=== PATIENT | male | born 2000 | race Hispanic/Latino ===

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

== ENCOUNTER → 2023-03-23 | Emergency (ER) | payer SELFPAY ==
[~2023-03-23] MED LIST: NA CHLORIDE 0.9% 1,000 ML ONE
--- OUTSIDE RECORDS SUMMARY | 2023-03-23 15:56 | XMS REPORT | Continuity of Care Document ---
Author Name Unknown Address [address] [facility] [address] [place] [id number] [facility] thconnect Address [address] [facility] [address] [place] [address] Care Team Providers Care Bridge Maintainer Name Role Phone Reese Oseguera MD Attending Clinician [phone] REESE OSEGUERA Attending Clinician Unavailable Problems Condition Name Condition Details Condition Category Status Onset Date Resolution Date Last Treatment Date Treating Clinician Comments Source No known active problems No known active problems Disease [facility] Allergies, Adverse Reactions, Alerts Allergy Name Allergy Type Status Severity Reaction(s) Onset Date Inactive Date Treating Clinician Comments Source Amoxicil loulou Propensi ty to adverse reaction s Active Nausea and/or Vomiting 07-02 00:00: 00 [facility] Penicill ins Propensi ty to adverse reaction s Active Nausea and/or Vomiting 07-02 00:00: 00 [facility] AMOXICIL LOULOU DRUG INGREDI Active N/V 07-02 00:00: 00 [facility] PENICILL INS Drug Class Active N/V 07-02 00:00: 00 [facility] Social History Social Habit Start Date Stop Date Quantity Comments Source Sex Assigned At [facility] Exposure to SARS-CoV-2 (event) Not sure [facility] Smoking Status Start Date Stop Date Source Unknown if ever smoked [facility] Medications Ordered Medication Name Filled Medication Name Start Date Stop Date Current Medication? Ordering Clinician Indication Dosage Frequency Signature (SIG) Comments Components Source No known medications No Un orion [facility] Vital Signs Vital Name Observation Time Observation Value Comments S [facility] Systolic blood pressure 2019-11-09 08:00:00 138 mm[Hg] [facility] Diastolic blood pressure 2019-11-09 08:00:00 66 mm[Hg] [facility] Heart rate 2019-11-09 08:00:00 73 /min [facility] Respiratory rate 2019-11-09 08:00:00 22 /min [facility] Oxygen saturation in Arterial blood by Pulse oximetry 2019-11-09 08:00:00 98 /min [facility] Body temperature 2019-11-09 07:10:00 36.83 Kath [facility] Body height 2019-11-09 07:10:00 167.6 cm [facility] Body weight 2019-11-09 07:10:00 117.935 kg [facility] BMI 2019-11-09 07:10:00 41.97 kg/m2 [facility] Procedures Procedure Date / Time Performed Performing Clinicia n Source CT HEAD WO CONTRAST 2019-11-09 07:44:24 Reese Oseguera [facility] EKG-12 LEAD 2019-11-09 07:40:49 Reese Oseguera [facility] BASIC METABOLIC PANEL (NA, K, CL, CO2, GLUCOSE, BUN, CREATININE, CA) 2019-11-09 07:21:00 Reese Oseguera [facility] CBC WITH DIFF 2019-11-09 07:21:00 Reese Oseguera [facility] URINALYSIS 2019-11-09 07:21:00 Reese Oseguera [facility] ADC / LCC - DRUG SCREEN TRIAGE 2019-11-09 07:21:00 Reese Oseguera [facility] Encounters Start Date/Time End Date/Time Encounter Type Admission Type Attending Clinicians Care Facility Care Department Encounter ID Source 2019-11-09 02:03:00 2019-11-09 03:39:00 Emergency Reese Oseguera [facility] [id number] [facility] 2019-11-09 02:03:00 2019-11-09 02:03:00 Emergency X REESE OSEGUERA [facility] ERT [id number] [facility] Results Test Description Test Time Test Comments Results Resul t Comments Source CT HEAD WO CONTRAST 2019-10-15 08:03:45 Impression: No CT evidence for acute intracranial abnormality. RL: [id number] AFC: [id number] Ordering physician: REESE OSEGUERA Indication: Seizure Comparison: None Technique: Axial images of the head were performed without administrationof intravenous contrast material. CT scan was performed according to ALARA(as low as reasonably achievable) principles. Findings: No acute intracranial abnormality is appreciated. Specifically,there is no acute intracranial hemorrhage, mass, mass effect, extra-axialfluid collection or hydrocephalus. The visualized paranasal sinuses areclear. No middle ear or mastoid effusion is appreciated. There is nocalvarial fracture. [facility] Results Inft User - 11/09/2019 3:04 AM CDTOrdering physician: REESE Germaindication: SeizureComparison: NoneTechnique: Axial images of the head were performed without administrationof intravenous contrast material. CT scan was performed according to ALARA(as low as reasonably achievable) principles.Findings: No acute intracranial abnormality is appreciated. Specifically,there is no acute intracranial hemorrhage, mass, mass effect, extra-axialfluid collection or hydrocephalus. The visualized paranasal sinuses areclear. No middle ear or mastoid effusion is appreciated. There is nocalvarial fracture.IMPRESSIONIm pression:No CT evidence for acute intracranial abnormality.RL: [id number]: [id number] signed by Dee Sarabia MD, PhD at 11/09/2019 3:[address] [facility] (NA, K, CL, CO2, GLUCOSE, BUN, CREATININE, CA)2019-11-09 07:47:00* Test Item Value Reference Range Interpretation Comme nts NA (test code = 9243906313) 138 mmol/L 135-145 K (test code = 2945911341) 4.0 mmol/L 3.5-5 CL (test code = 8907955182) 101 mmol/L 98-108 CO2 TOTAL (test code = 4507516423) 30 mmol/L 23-31 AGAP (test code = 3638048432) 2-16 BUN (test code = 2646102068) 12 mg/dL 7-23 GLUCOSE (test code = 1426543359) 115 mg/dL 70-110 H CREATININE (test code = 4881108461) 0.83 mg/dL 0.6-1.25 CALCIUM (test code = 1235879794) 9.7 mg/dL 8.6-10.6 ANA MARIA (test code = ANA MARIA) Association of Glomerular Filtration Rate (GFR) and Staging of Kidney Disease* + --+ --+ ------+| GFR (mL/min/1.73 m2) ?| With Kidney Damage ?| ?Without Kidney Damage+ --------+ --------+ +| ?>90 ?| ?Stage one ?| ? Normal ?+ ---+ ---+ -------+| ?60-89 ?| ?Stage two ?| ? Decreased GFR ? + --+ --+ ------+| ?30-59 ?| ?Stage three ?| ? Stage three ? + --+ --+ ------+| ?15-29 ?| ?Stage four ? | ? Stage four ?+ ---+ ---+ -------+| ?<15 (or dialysis) ? ?| ?Stage five ? | ? Stage five ?+ ---+ ---+ -------+ *Each stage assumes the associated GFR level has been in effect for at least three months. ?Stages 1 to 5, with or without kidney disease, indicate chronic kidney disease. Notes: Determination of stages one and two (with eGFR >59mL/min/1.73 m2) requires estimation of kidney damage for at least three months as defined by structural or functional abnormalities of the kidney, manifested by either:Pathological abnormalities or Markers of kidney damage (including abnormalities in the composition of the blood or urine or abnormalities in imaging tests). Lab Interpretation (test code = 90537-2) Abnormal [facility] WITH [id number] 07:46:00* Test Item Value Reference Range Interpretation Comme nts WBC (test code = 6690-2) See_Comment H [Automated message] The system which generated this result transmitted reference range: 4.50 - 13.50 10*3/?L. The reference range was not used to interpret this result as normal/abnormal. RBC (test code = 789-8) See_Comment [Automated message] The system which generated this result transmitted reference range: 4.50 - 5.30 10*6/?L. The reference range was not used to interpret this result as normal/abnormal. HGB (test code = 718-7) 14.5 g/dL 13-16 HCT (test code = 4544-3) 43.2 % 37-49 MCV (test code = 787-2) 85.9 fL 78-95 MCH (test code = 785-6) 28.8 pg 26-32 MCHC (test code = 786-4) 33.6 g/dL 32-36 RDW-SD (test code = 90513-9) 39.3 fL 38.5-49 RDW-CV (test code = 788-0) 12.6 % 11.5-14 PLT (test code = 777-3) See_Comment H [Automated message] The system which generated this result transmitted reference range: 133 - 320 10*3/?L. The reference range was not used to interpret this result as normal/abnormal. MPV (test code = 35393-1) 10.1 fL 9.3-12.9 NRBC/100 WBC (test code = 7851284271) See_Comment [Automated message] The system which generated this result transmitted reference range: 0.0 - 10.0 /100 WBCs. The reference range was not used to interpret this result as normal/abnormal. NRBC x10^3 (test code = 1821452237) <0.01 See_Comment [Automated message] The system which generated this result transmitted reference range: 10*3/?L. The reference range was not used to interpret this result as normal/abnormal. GRAN MAT (NEUT) % (test code = 770-8) 84.2 % IMM GRAN % (test code = 7094804830) 0.60 % LYMPH % (test code = 736-9) 8.5 % MONO % (test code = 5905-5) 6.0 % EOS % (test code = 713-8) 0.2 % BASO % (test code = 706-2) 0.5 % GRAN MAT x10^3(ANC) (test code = 6929253529) 14.89 10*3/uL 1.5-10.3 H IMM GRAN x10^3 (test code = 5135953624) 0.11 10*3/uL 0-0.06 H LYMPH x10^3 (test code = 731-0) 1.51 10*3/uL 0.7-7.4 MONO x10^3 (test code = 742-7) 1.06 10*3/uL 0-0.5 H EOS x10^3 (test code = 711-2) 0.03 10*3/uL 0-0.4 BASO x10^3 (test code = 704-7) 0.08 10*3/uL 0-0.1 Lab Interpretation (test code = 33139-5) [facility]* Test Item Value Reference Range Interpretation Comme nts APPEARANCE (test code = 4045077030) Clear Clear COLOR (test code = 9129333349) Yellow Yellow PH (test code = 9715975602) 4.8-8.0 SP GRAVITY (test code = 6672887614) 1.003-1.030 GLU U QUAL (test code = 3541281572) Normal Normal BLOOD (test code = 4176073175) Negative Negative KETONES (test code = 8857748632) 5 mg/dL Negative A PROTEIN (test code = 2887-8) 100 mg/dL Negative A UROBILIN (test code = 5352031327) 2.0 mg/dL Normal A BILIRUBIN (test code = 3840641925) Negative Negative NITRITE (test code = 8258669429) Negative Negative LEUK ARMANDO (test code = 9886812519) Negative Negative RBC/HPF (test code = 0669923106) See_Comment [Automated Wavii] The system which generated this result transmitted reference range: 0 - 3 HPF. The reference range was not used to interpret this result as normal/abnormal. WBC/HPF (test code = 8955706826) See_Comment [Automated Wavii] The system which generated this result transmitted reference range: 0 - 5 HPF. The reference range was not used to interpret this result as normal/abnormal. BACTERIA (test code = 0262859045) Negative Negative MUCOUS (test code = 1042671829) Moderate Negative LPF A SQ EPITH (test code = 8708710021) <1 HPF Lab Interpretation (test code = 88149-6) Abnormal [facility]"
[2023-03-23 16:26] LABS: Absolute Lymphocytes (CBC) 0.9 K/uL (0.7-4.9); Hematocrit 38.2 % (39.6-49.0); Lymphocytes % 10.2 % (15.3-44.8); MCV 88.9 fL (80-100); MPV 8.4 fL (7.6-11.3); Platelets 294 thou/uL (152-406)
[2023-03-23 16:28] LABS: Protime INR 1.07
[2023-03-23 16:38] LABS: ALT/SGPT 19 U/L (16-61); AST/SGOT 16 U/L (15-37); Albumin 3.9 g/dL (3.4-5.0); Alkaline Phosphatase 78 U/L (45-117); BUN Blood Urea Nitrogen 19 mg/dL (7-18); Bicarbonate 27 mEq/L (21-32); Bilirubin Direct 0.1 mg/dL (0-0.2); Bilirubin Indirect, Calculated 0.3 mg/dL (0.2-0.8); Bilirubin Total 0.4 mg/dL (0.2-1.0); Glomerular Filtration Rate 111 ml/min (=/>90); Glucose Level 107 mg/dL (74-106); Potassium 3.6 mEq/L (3.5-5.1); Protein, Total 7.5 g/dL (6.4-8.2); Sodium Level 140 mEq/L (136-145)
[2023-03-23 16:41] LABS: Barbiturates NEGATIVE (NEGATIVE); Benzodiazepines NEGATIVE (NEGATIVE); Cocaine NEGATIVE (NEGATIVE); METHAMPHETAM NEGATIVE (NEGATIVE); Methadone NEGATIVE (NEGATIVE); Opiates NEGATIVE (NEGATIVE); Phencyclidine NEGATIVE (NEGATIVE); THC Cannibis POSITIVE (NEGATIVE)
--- NOTE | 2023-03-23 17:30 | EDPHYS ---
Physician Documentation [facility] Name: Jesse Mora Age: 22 yrs Sex: Male : 2000 Arrival Date: 03/23/2023 Time: 15:53 Bed 17 Private MD: ED Physician Nba Casper HPI: 03/23 21:09 This 22 yrs old Male presents to ER via EMS with complaints of Palpitations. kb 21:09 Pt is a 22 year old male who was brought in by EMS after neighbor called for pt acting kb "like he was on something." Pt had an accidental OD on percocet last week so they brought him in for evaluation. Denies suicidal ideations. States he isn't acting any different than normal. . Historical: - Allergies: 16:55 Amoxicillin; db 16:55 PENICILLINS; db 16:55 unknown antibiotic; db - PMHx: 16:55 ADD/ADHD; Asthma; db - Immunization history:: Adult Immunizations unknown. - Social history:: Smoking status: Patient reports the use of cigarette tobacco products, smokes one-half pack cigarettes per day. ROS: 21:08 Constitutional: Negative for fever, chills, and weight loss, kb 21:08 All other systems are negative, Exam: 21:08 Constitutional: This is a well developed, well nourished patient who is awake, alert, kb and in no acute distress. Head/Face: Normocephalic, atraumatic. ENT: Moist Mucous membranes Respiratory: Respirations even and unlabored. No increased work of breathing. Talking in full sentences Abdomen/GI: Soft, non-tender. No distention Skin: Warm, dry with normal turgor. Normal color. MS/ Extremity: Pulses equal, no cyanosis. Neurovascular intact. Full, normal range of motion. Neuro: Awake and alert, GCS 15, oriented to person, place, time, and situation. Moves all extremities. Normal gait. 21:08 Constitutional: The patient appears anxious, 21:08 Cardiovascular: Rate: tachycardic, 21:08 Psych: Behavior/mood is anxious, Affect is animated, Oriented to person, place, time, Patient has no thoughts/intents to harm self or others. Judgement / Insight is normal. Vital Signs: 15:51 BP 131 / 79; Pulse 97; Resp 18; Pulse Ox 97% ; db 15:52 BP 131 / 79; Pulse 95; Resp 18; Temp 98.6(O); Pulse Ox 100% ; Weight 70.31 kg; Height 5 db ft. 6 in. ; 18:04 BP 135 / 63; Pulse 62; Resp 18; Pulse Ox 100% on R/A; db 15:52 Body Mass Index 25.02 (70.31 kg, 167.64 cm) db MDM: 15:57 Patient medically screened. kb 21:08 Differential diagnosis: arrythmia, dehydration, stress disorder, drug abuse. Data kb reviewed: vital signs, nurses notes. Historians other than the Patient: EMS: [facility]. Counseling: I had a detailed discussion with the patient and/or guardian regarding the historical points, exam findings, and any diagnostic results supporting the discharge/admit diagnosis, lab results, the need for outpatient follow up, a family practitioner, to return to the emergency department if symptoms worsen or persist or if there are any questions or concerns that arise at home. ED course: Pt calm and heart rate normal after treatment. Pt ready to go home.. 03/23 15:57 Order name: Acetaminophen; Complete Time: 16:44 kb 03/23 15:57 Order name: Basic Metabolic Panel; Complete Time: 16:44 kb 03/23 15:57 Order name: CBC with Diff; Complete Time: 16:38 kb 03/23 15:57 Order name: ETOH Level; Complete Time: 16:30 kb 03/23 15:57 Order name: Hepatic Function; Complete Time: 16:44 kb 03/23 15:57 Order name: PT-INR; Complete Time: 16:30 kb 03/23 15:57 Order name: Ptt, Activated; Complete Time: 16:30 kb 03/23 15:57 Order name: Salicylate; Complete Time: 16:44 kb 03/23 15:57 Order name: Urine Drug Screen; Complete Time: 16:44 kb 03/23 15:57 Order name: EKG; Complete Time: 15:57 kb 03/23 15:57 Order name: EKG - Nurse/Tech; Complete Time: 17:19 kb 03/23 15:57 Order name: IV Saline Lock; Complete Time: 16:44 kb 03/23 15:57 Order name: Labs collected and sent; Complete Time: 16:44 kb 03/23 15:57 Order name: Suicide Screening (Junito); Complete Time: 16:44 kb Administered Medications: 16:43 Drug: NS 0.9% IV 1000 ml IV at 1000 ml once Route: IV; Rate: 1000 ml; Site: right db antecubital; 17:55 Follow up: Response: No adverse reaction; IV Status: Completed infusion; IV Intake: db 1000ml Disposition Summary: 03/23/23 17:29 Discharge Ordered Notes: Location: Home kb Condition: Stable kb Diagnosis - Tachycardia, unspecified - resolved kb Followup: kb - With: Emergency Department - When: As needed - Reason: Worsening of condition Followup: kb - With: Private Physician - When: 2 - 3 days - Reason: Recheck today's complaints, Continuance of care, Re-evaluation by your physician Discharge Instructions: - Discharge Summary Sheet kb - Sinus Tachycardia kb - Illegal Drug Use Information, Adult kb Forms: - Medication Reconciliation Form kb - Thank You Letter kb - Antibiotic Education kb - Prescription Opioid Use kb - Patient Portal Instructions kb - Leadership Thank You Letter kb Signatures: Dispatcher [employer] Di Arroyo, INTERPERSONAL COMMUNICATIONS PROFESSOR-C INTERPERSONAL COMMUNICATIONS PROFESSOR-Kristen Petersen, RN RN db
--- NOTE | 2023-03-23 17:30 | ER ---
Nurse's Notes [facility] Name: Jesse Mora Age: 22 yrs Sex: Male : 2000 Arrival Date: 03/23/2023 Time: 15:53 Bed 17 Private MD: Diagnosis: Tachycardia, unspecified-resolved Presentation: 03/23 15:52 Chief complaint: EMS states: PATIENT BROUGHT IN BY EMS BECAUSE A FRIEND CALLED 911 db BECAUSE PATIENT LOOKS LIKE HE IS ON SOMETHING. PATIENT STATES DID NOT WANT TO COME TO THE ER. PATIENT APPEARS ANXIOUS HAS RANDOM ARM MOVEMENTS DENIES TAKING DRUGS. STATES DID OVERDOSE ON PERCOCET LAST WEEK. DENIES SI TODAY. BG 181, HR 145. GIVEN 500 ML NS. Coronavirus screen: Client denies travel out of the [place] in the last 14 days. At this time, the client does not indicate any symptoms associated with coronavirus-19. Ebola Screen: Patient negative for fever greater than or equal to 101.5 degrees Fahrenheit, and additional compatible Ebola Virus Disease symptoms Patient denies exposure to infectious person. Patient denies travel to an Ebola-affected area in the 21 days before illness onset. No symptoms or risks identified at this time. Initial Sepsis Screen: Does the patient meet any 2 criteria? HR > 90 bpm. Does the patient have a suspected source of infection? No. Patient's initial sepsis screen is negative. Risk Assessment: Do you want to hurt yourself or someone else? Patient reports no desire to harm self or others. Onset of symptoms was March 23, 2023. Care prior to arrival: Medication(s) given: Normal saline infusion, 500 mL, IV initiated. 18 GA, in the right antecubital area, Glucose check: 181. 15:52 Method Of Arrival: EMS: [facility] db 15:52 Acuity: BARRON 2 db Triage Assessment: 15:52 General: Appears in no apparent distress. uncomfortable, Behavior is cooperative, db anxious, restless. Pain: Denies pain. Neuro: Level of Consciousness is awake, alert, obeys commands, Oriented to person, place, time, situation. Respiratory: Airway is patent Respiratory effort is even, unlabored, Respiratory pattern is regular, symmetrical. Historical: - Allergies: 16:55 Amoxicillin; db 16:55 PENICILLINS; db 16:55 unknown antibiotic; db - PMHx: 16:55 ADD/ADHD; Asthma; db - Immunization history:: Adult Immunizations unknown. - Social history:: Smoking status: Patient reports the use of cigarette tobacco products, smokes one-half pack cigarettes per day. Screenin:00 [facility] ED Fall Risk Assessment (Adult) History of falling in the last 3 months, db including since admission No falls in past 3 months (0 pts) Confusion or Disorientation No (0 pts) Intoxicated or Sedated No (0 pts) Impaired Gait No (0 pts) Mobility Assist Device Used No (0 pt) Altered Elimination No (0 pt) Score/Fall Risk Level 0 - 2 = Low Risk Oriented to surroundings, Maintained a safe environment. Abuse screen: Denies threats or abuse. Denies injuries from another. Nutritional screening: No deficits noted. Tuberculosis screening: No symptoms or risk factors identified. Assessment: 16:57 Reassessment: Patient appears in no apparent distress at this time. Patient and/or db family updated on plan of care and expected duration. Pain level reassessed. Patient is alert, oriented x 3, equal unlabored respirations, skin warm/dry/pink. PATIENT SPOUSE AT BEDSIDE. PATIENT IS NOW CALM AND RELAXED. General: Appears in no apparent distress. comfortable, Behavior is calm, cooperative. Neuro: Level of Consciousness is awake, alert, obeys commands, Oriented to person, place, time, situation. Respiratory: Airway is patent Respiratory effort is even, unlabored, Respiratory pattern is regular, symmetrical. 18:04 Reassessment: Patient appears in no apparent distress at this time. Patient and/or db family updated on plan of care and expected duration. Pain level reassessed. Patient is alert, oriented x 3, equal unlabored respirations, skin warm/dry/pink. Patient denies pain at this time. Patient states feeling better. Patient states symptoms have improved. General: Appears in no apparent distress. comfortable, Behavior is calm, cooperative. Vital Signs: 15:51 BP 131 / 79; Pulse 97; Resp 18; Pulse Ox 97% ; db 15:52 BP 131 / 79; Pulse 95; Resp 18; Temp 98.6(O); Pulse Ox 100% ; Weight 70.31 kg; Height 5 db ft. 6 in. ; 18:04 BP 135 / 63; Pulse 62; Resp 18; Pulse Ox 100% on R/A; db 15:52 Body Mass Index 25.02 (70.31 kg, 167.64 cm) db ED Course: 15:52 Arm band placed on Patient placed in an exam room. db 15:56 Patient arrived in ED. zm 15:56 Di Mandujano FNP-C is [facility]. kb 15:56 Nba Casper DO is Attending Physician. kb 16:00 Maintain EMS IV. Dressing intact. Good blood return noted. Site clean \T\ dry. Gauge \T\ db site: 18 G LEFT AC. 16:10 Kristen Salazar, RN is Primary Nurse. db 16:22 Triage completed. db 16:25 Urine Drug Screen Sent. zm 17:00 Patient has correct armband on for positive identification. Bed in low position. Call db light in reach. Side rails up X 1. 18:04 No provider procedures requiring assistance completed. db 18:04 IV discontinued, intact, bleeding controlled, No redness/swelling at site. db 18:04 Provided Education on: DISCHARGE. db Administered Medications: 16:43 Drug: NS 0.9% IV 1000 ml IV at 1000 ml once Route: IV; Rate: 1000 ml; Site: right db antecubital; 17:55 Follow up: Response: No adverse reaction; IV Status: Completed infusion; IV Intake: db 1000ml Medication: 18:04 VIS not applicable for this client. db Intake: 17:55 IV: 1000ml; Total: 1000ml. db Outcome: 17:29 Discharge ordered by MD. kb 18:04 Discharged to home ambulatory, with family, db 18:04 Condition: stable 18:04 Discharge instructions given to patient, Instructed on discharge instructions, follow up and referral plans. 18:06 Patient left the ED. db Signatures: Di Mandujano FNP-C FNP-Larissa Philippe Kristen Salazar, RN RN db
[2023-03-23 20:51] VITALS: BP 135/63; O2SAT 100
--- NOTE | 2023-03-24 17:35 | EKG ---
Test Date: 2023-03-23 Test Time: 17:16:19 Engineering Faculty Member: LUIS ENRIQUE MEASUREMENT RESULTS: Intervals: Rate: 55 ID: [id number] QRSD: 98 QT: 414 QTc: 396 [place]: P: 22 ID: [id number] QRS: 49 T: 60 INTERPRETIVE STATEMENTS: Sinus bradycardia Otherwise normal ECG Compared to ECG 06/07/2012 10:21:34 Sinus rhythm no longer present Sinus arrhythmia no longer present Electronically Signed On 03-24-23 17:33:47 POWER TRANSFORMER REPAIRER by Juan Fajardo
== END ==
LOC: ER 15:53
DX: R00.0 Tachycardia, unspecified (principal); J45.909 Unspecified asthma, uncomplicated; F90.9 Attention-deficit hyperactivity disorder, unspecified type; F17.210 Nicotine dependence, cigarettes, uncomplicated; Z88.0 Allergy status to penicillin
CPT/HCPCS: 36415; 80048; 80076; 80143; 80179; 80307; 82077; 85025; 85610; 85730; 93005; 96360; 99284; J7030

== ENCOUNTER → 2023-03-28 | Emergency (ER) | payer SELFPAY ==
[~2023-03-28] MED LIST changes: +NALOXONE HCL 2 MG/2 ML VIAL ONE; +ONDANSETRON 4 MG/2 ML VIAL ONE
--- OUTSIDE RECORDS SUMMARY | 2023-03-28 22:13 | XMS REPORT | Continuity of Care Document ---
Author Name Unknown Address [address] [place] [address] [facility] thconnect Address [address] [place] [address] Care Team Providers Care Hopper Attendant Name Role Phone Reese Oseguera MD Attending Clinician [phone] REESE OSEGUERA Attending Clinician Unavailable Problems Condition Name Condition Details Condition Category Status Onset Date Resolution Date Last Treatment Date Treating Clinician Comments Source No known active problems No known active problems Disease [facility] Allergies, Adverse Reactions, Alerts Allergy Name Allergy Type Status Severity Reaction(s) Onset Date Inactive Date Treating Clinician Comments Source Amoxicil loulou Propensi ty to adverse reaction s Active Nausea and/or Vomiting 07-02 00:00: 00 [facility] Penicill ins Propensi ty to adverse reaction s Active Nausea and/or Vomiting 07-02 00:00: 00 [facility] AMOXICIL LOULOU DRUG INGREDI Active N/V 07-02 00:00: 00 [facility] PENICILL INS Drug Class Active N/V 07-02 00:00: 00 [facility] Social History Social Habit Start Date Stop Date Quantity Comments Source Sex Assigned At [facility] Exposure to SARS-CoV-2 (event) Not sure [facility] Smoking Status Start Date Stop Date Source Unknown if ever smoked [facility] Medications Ordered Medication Name Filled Medication Name Start Date Stop Date Current Medication? Ordering Clinician Indication Dosage Frequency Signature (SIG) Comments Components Source No known medications No Un orion [facility] Vital Signs Vital Name Observation Time Observation Value Comments [facility] Systolic blood pressure 2019-11-09 08:00:00 138 mm[Hg] [facility] Diastolic blood pressure 2019-11-09 08:00:00 66 mm[Hg] [facility] Heart rate 2019-11-09 08:00:00 73 /min [facility] Respiratory rate 2019-11-09 08:00:00 22 /min [facility] Oxygen saturation in Arterial blood by Pulse oximetry 2019-11-09 08:00:00 98 /min [facility] Body temperature 2019-11-09 07:10:00 36.83 Kath [facility] Body height 2019-11-09 07:10:00 167.6 cm [facility] Body weight 2019-11-09 07:10:00 117.935 kg [facility] BMI 2019-11-09 07:10:00 41.97 kg/m2 [facility] Procedures Procedure Date / Time Performed Performing Clinicia n Source CT HEAD WO CONTRAST 2019-11-09 07:44:24 Reese Oseguera [facility] EKG-12 LEAD 2019-11-09 07:40:49 Reese Oseguera [facility] BASIC METABOLIC PANEL (NA, K, CL, CO2, GLUCOSE, BUN, CREATININE, CA) 2019-11-09 07:21:00 Reese Oseguera [facility] CBC WITH DIFF 2019-11-09 07:21:00 Reese Oseguera [facility] URINALYSIS 2019-11-09 07:21:00 Reese Oseguera [facility] ADC / LCC - DRUG SCREEN TRIAGE 2019-11-09 07:21:00 Reese Oseguera [facility] Encounters Start Date/Time End Date/Time Encounter Type Admission Type Attending Clinicians Care Facility Care Department Encounter ID Source 2019-11-09 02:03:00 2019-11-09 03:39:00 Emergency Reese Oseguera [facility] [id number] [facility] 2019-11-09 02:03:00 2019-11-09 02:03:00 Emergency X REESE OSEGUERAMB ERT [id number] [facility] Results Test Description Test Time Test Comments Results Resul t Comments Source CT HEAD WO CONTRAST 2019-10-15 08:03:45 Impression: No CT evidence for acute intracranial abnormality. RL: [id number] AFC: [id number] Ordering physician: REESE OSEGUERA Indication: Seizure Comparison: [...] effusion is appreciated. There is nocalvarial fracture. [facility], Radiant Results Inft User - [...] CT evidence for acute intracranial abnormality.RL: 460AFC: [id number] signed by Dee Sarabia MD, PhD at 11/09/2019 3:03 AM [facility] (NA, K, CL, CO2, GLUCOSE, BUN, CREATININE, CA)2019-11-09 07:47:00* Test Item Value Reference Range Interpretation Comme nts NA (test code = 2373617547) 138 mmol/L 135-145 K (test code = 0198056841) 4.0 mmol/L 3.5-5 CL (test code = 6178452698) 101 mmol/L 98-108 CO2 TOTAL (test code = 0096020993) 30 mmol/L 23-31 AGAP (test code = 1131570976) 2-16 BUN (test code = 7392929990) 12 mg/dL 7-23 GLUCOSE (test code = 1831210674) 115 mg/dL 70-110 H CREATININE (test code = 2665683538) 0.83 mg/dL 0.6-1.25 CALCIUM (test code = 2605944743) 9.7 mg/dL 8.6-10.6 ANA MARIA (test code [...] imaging tests). Lab Interpretation (test code = 61418-7) Abnormal [facility] WITH [id number] 07:46:00* Test Item Value Reference Range Interpretation [...] 33.6 g/dL 32-36 RDW-SD (test code = 92005-3) 39.3 fL 38.5-49 RDW-CV (test code = 788-0) 12.6 % 11.5-14 PLT (test code = 777-3) See_Comment H [Automated message] The system which generated this result transmitted reference range: 133 - 320 10*3/?L. The reference range was not used to interpret this result as normal/abnormal. MPV (test code = 13128-9) 10.1 fL 9.3-12.9 NRBC/100 WBC (test code = 3908865491) See_Comment [Automated message] The system which generated this result transmitted reference range: 0.0 - 10.0 /100 WBCs. The reference range was not used to interpret this result as normal/abnormal. NRBC x10^3 (test code = 0297358232) <0.01 See_Comment [Automated message] The system which generated this result transmitted reference range: 10*3/?L. The reference range was not used to interpret this result as normal/abnormal. GRAN MAT (NEUT) % (test code = 770-8) 84.2 % IMM GRAN % (test code = 0969092422) 0.60 % LYMPH % (test code = 736-9) 8.5 % MONO % (test code = 5905-5) 6.0 % EOS % (test code = 713-8) 0.2 % BASO % (test code = 706-2) 0.5 % GRAN MAT x10^3(ANC) (test code = 2227519546) 14.89 10*3/uL 1.5-10.3 H IMM GRAN x10^3 (test code = 9218386716) 0.11 10*3/uL 0-0.06 H LYMPH x10^3 (test code = 731-0) 1.51 10*3/uL 0.7-7.4 MONO x10^3 (test code = 742-7) 1.06 10*3/uL 0-0.5 H EOS x10^3 (test code = 711-2) 0.03 10*3/uL 0-0.4 BASO x10^3 (test code = 704-7) 0.08 10*3/uL 0-0.1 Lab Interpretation (test code = 21297-5) Abnormal [facility] 07:45:00* Test Item Value Reference Range Interpretation Comme nts APPEARANCE (test code = 9335530648) Clear Clear COLOR (test code = 7467304098) Yellow Yellow PH (test code = 5846099966) 4.8-8.0 SP GRAVITY (test code = 2659975825) 1.003-1.030 GLU U QUAL (test code = 3818253997) Normal Normal BLOOD (test code = 7243334569) Negative Negative KETONES (test code = 3989462186) 5 mg/dL Negative A PROTEIN (test code = 2887-8) 100 mg/dL Negative A UROBILIN (test code = 2083416985) 2.0 mg/dL Normal A BILIRUBIN (test code = 7747934568) Negative Negative NITRITE (test code = 7704838742) Negative Negative LEUK ARMANDO (test code = 0011868343) Negative Negative RBC/HPF (test code = 3714532235) See_Comment [Automated [employer] ge] The system which generated this result transmitted reference range: 0 - 3 HPF. The reference range was not used to interpret this result as normal/abnormal. WBC/HPF (test code = 8146400287) See_Comment [Automated [employer] ge] The system which generated this result transmitted reference range: 0 - 5 HPF. The reference range was not used to interpret this result as normal/abnormal. BACTERIA (test code = 7150463293) Negative Negative MUCOUS (test code = 0104906213) Moderate Negative LPF A SQ EPITH (test code = 5076976980) <1 HPF Lab Interpretation (test code = 64521-8) Abnormal [facility]"
[2023-03-28 22:42] LABS: Hematocrit 39.7 % (39.6-49.0); Lymphocytes % 10.8 % (15.3-44.8); MCV 88.4 fL (80-100); MPV 8.5 fL (7.6-11.3); Platelets 251 thou/uL (152-406); RBC Red Blood Cell Count 4.49 M/uL (4.33-5.43)
[2023-03-28 22:56] LABS: Albumin 4.2 g/dL (3.4-5.0); Bilirubin Direct 0.2 mg/dL (0-0.2); Bilirubin Indirect, Calculated 0.5 mg/dL (0.2-0.8); Bilirubin Total 0.7 mg/dL (0.2-1.0); Magnesium 1.9 mg/dL (1.6-2.4); Potassium 3.9 mEq/L (3.5-5.1); Protein, Total 8.3 g/dL (6.4-8.2); Troponin High Sensitivity 9.3 pg/mL (<58.9)
--- NOTE | 2023-03-29 01:11 | ER ---
Nurse's Notes [facility] Name: Jesse Mora Age: 22 yrs Sex: Male : 2000 Arrival Date: 03/28/2023 Time: 22:11 Bed 20 Private MD: Diagnosis: Acute unintentional fentanyl overdose Presentation: 03/28 22:23 Chief complaint: Patient states: "I took one fentanyl pill that a friend gave me by jw7 crushed it and inhaled it through my nose". Coronavirus screen: At this time, the client does not indicate any symptoms associated with coronavirus-19. Ebola Screen: No symptoms or risks identified at this time. Initial Sepsis Screen: Does the patient meet any 2 criteria? No. Patient's initial sepsis screen is negative. Does the patient have a suspected source of infection? No. Patient's initial sepsis screen is negative. Risk Assessment: Do you want to hurt yourself or someone else? Patient reports no desire to harm self or others. Onset of symptoms was March 28, 2023. 22:23 Method Of Arrival: EMS: [facility] 7 22:23 Acuity: BARR[place] 3 jw7 22:30 Care prior to arrival: Medication(s) given: mother states "He was given 4mg of Narcan jw7 intranasal, by our neighbor because he was in and out of it and would go from being unresponsive and slumped over to clapping and bouncing around". Triage Assessment: 22:30 General: Appears in no apparent distress. comfortable, unkempt, Behavior is calm, jw7 cooperative, quiet. Pain: Denies pain. EENT: No deficits noted. No signs and/or symptoms were reported regarding the EENT system. Neuro: Level of Consciousness is awake, alert, obeys commands, Oriented to person, place, time, situation. Cardiovascular: Heart tones S1 S2 present Capillary refill < 3 seconds Clubbing of nail beds is absent JVD is absent Patient's skin is warm and dry. Respiratory: Airway is patent Trachea midline Respiratory effort is even, unlabored, Respiratory pattern is regular, symmetrical. GI: Abdomen is flat, non-distended, Bowel sounds present X 4 quads. : No deficits noted. No signs and/or symptoms were reported regarding the genitourinary system. Derm: Skin is healthy with good turgor, Skin is dry, Skin is normal, Skin temperature is warm Several, superficial scrapes noted throughout back, mother states "His brother was trying to help hold him down when he was acting out". Musculoskeletal: Circulation, motion, and sensation intact. Range of motion: intact in all extremities. Historical: - Allergies: 22:27 Amoxicillin; jw7 22:27 PENICILLINS; jw7 22:27 unknown antibiotic; 7 - Home Meds: 22:27 Adderall XR 20 mg Oral cp24 1 cap once daily [Active]; jw7 - PMHx: 22:27 ADD/ADHD; Asthma; jw7 - PSHx: 22:27 None; jw7 - Immunization history:: Adult Immunizations unknown. - Social history:: Smoking status: Patient reports the use of cigarette tobacco products, smokes one-half pack cigarettes per day. - Family history:: not pertinent. Screenin:35 [facility] ED Fall Risk Assessment (Adult) History of falling in the last 3 months, [facility] including since admission No falls in past 3 months (0 pts) Score/Fall Risk Level 0 - 2 = Low Risk Oriented to surroundings, Maintained a safe environment, Educated pt \\T\\ family on fall prevention, incl call for assistance when getting out of bed. Abuse screen: Denies threats or abuse. Denies injuries from another. Nutritional screening: No deficits noted. Tuberculosis screening: No symptoms or risk factors identified. Assessment: 22:30 General: see triage assessment. [facility] 23:30 Reassessment: Patient appears in no apparent distress at this time. No changes from [facility] previously documented assessment. Patient and/or family updated on plan of care and expected duration. Pain level reassessed. Patient is alert, oriented x 3, equal unlabored respirations, skin warm/dry/pink. 03/29 01:00 Reassessment: Patient appears in no apparent distress at this time. Patient and/or jw7 family updated on plan of care and expected duration. Pain level reassessed. Patient is alert, oriented x 3, equal unlabored respirations, skin warm/dry/pink. Patient states feeling better. Patient states symptoms have improved. Vital Signs: 03/28 22:23 BP 142 / 71; Pulse 91; Resp 15 S; Temp 98.5; Pulse Ox 100% on R/A; Weight 68.04 kg; jw7 Height 5 ft. 3 in. ; Pain 0/10; 22:45 BP 147 / 84; Pulse 83; Resp 21 S; Pulse Ox 100% on R/A; jw7 23:30 BP 141 / 73; Pulse 73; Resp 26 S; Pulse Ox 99% on R/A; jw7 03/29 00:30 BP 123 / 76; Pulse 75; Resp 24 S; Pulse Ox 96% on R/A; jw7 01:25 BP 136 / 56; Pulse 74; Resp 16 S; Pulse Ox 99% on R/A; jw7 03/28 22:23 Body Mass Index 26.57 (68.04 kg, 160.02 cm) jw7 03/28 22:23 Pain Scale: Adult jw7 ED Course: 03/28 22:22 Patient arrived in ED. jw7 22:24 Marcus Quinones MD is Attending Physician. sp4 22:25 Inserted saline lock: 20 gauge in right forearm, using aseptic technique. Blood rv1 collected. 22:27 Triage completed. jw7 22:29 Basic Metabolic Panel Sent. rv1 22:29 CBC with Diff Sent. rv1 22:29 LFT's Sent. rv1 22:29 Magnesium Sent. rv1 22:29 NT PRO-BNP Sent. rv1 22:29 Troponin HS Sent. rv1 22:30 Arm band placed on. jw7 22:35 Patient has correct armband on for positive identification. Bed in low position. Call jw7 light in reach. Side rails up X2. Family accompanied patient. 22:50 ShadisJuly RN is Primary Nurse. jw7 03/29 01:26 No provider procedures requiring assistance completed. IV discontinued, intact, jw7 bleeding controlled, No redness/swelling at site. Pressure dressing applied. 01:26 Provided Education on: discharge instructions and medication usage. jw7 Administered Medications: 03/28 22:59 Drug: Naloxone IVP 2 mg IVP once Route: IVP; Site: right antecubital; jw7 03/29 01:02 Follow up: Response: No adverse reaction; Marked relief of symptoms jw7 03/28 23:00 Drug: NS 0.9% IV 1000 ml IV at 1 bolus Per protocol; 1000 mL bolus Route: IV; Rate: 1 jw7 bolus; Site: right antecubital; 03/29 01:02 Follow up: Response: No adverse reaction; IV Status: Completed infusion; IV Intake: jw7 1000ml 03/28 23:00 Drug: Ondansetron IVP 4 mg IVP once; over 2 minutes Route: IVP; Site: right antecubital;jw7 03/29 01:02 Follow up: Response: No adverse reaction jw7 Medication: :26 VIS not applicable for this client. jw7 Intake: :02 IV: 1000ml; Total: 1000ml. jw7 Outcome: 01:11 Discharge ordered by MD. painter :26 Discharged to home ambulatory, with family, jw7 Condition: stable : Discharge instructions given to patient, family, Instructed on discharge instructions, follow up and referral plans. medication usage, Demonstrated understanding of instructions, follow-up care, medications, Prescriptions given X 1, : Patient left the ED. jw7 Signatures: July Neff RN RN jw7 Josselin Jeffers rv1 Marcus Quinones MD MD sp4 Corrections: (The following items were deleted from the chart) 03/28 22:30 22:27 Immunization history: Adult Immunizations up to date, jw7 jw7
--- NOTE | 2023-03-29 01:12 | EDPHYS ---
Physician Documentation [facility] Name: Jesse Mora Age: 22 yrs Sex: Male : 2000 Arrival Date: 03/28/2023 Time: 22:11 Bed 20 Private MD: ED Physician Marcus Quinones HPI: 03/28 22:24 This 22 yrs old Male presents to ER via Unassigned with complaints of Fentanyl sp4 Overdose . 03/29 01:13 . sp4 01:17 22-year-old male brought in with EMS for acute fentanyl ingestion with respiratory sp4 difficulty also unresponsiveness. Patient was found by his relatives and police with EMS were called. product safety officer has administered 4 mg intranasal Narcan with patient returning to alert state. Patient was brought to the here for a further evaluation by EMS. Patient does admit to crushing and snorting fentanyl tablet today just prior to arrival.. Historical: - Allergies: 03/28 22:27 Amoxicillin; jw7 22:27 PENICILLINS; jw7 22:27 unknown antibiotic; jw7 - Home Meds: 22:27 Adderall XR 20 mg Oral cp24 1 cap once daily [Active]; jw7 - PMHx: 22:27 ADD/ADHD; Asthma; jw7 - PSHx: 22:27 None; jw7 - Immunization history:: Adult Immunizations unknown. - Social history:: Smoking status: Patient reports the use of cigarette tobacco products, smokes one-half pack cigarettes per day. - Family history:: not pertinent. ROS: 03/29 01:17 Constitutional: Negative for fever, chills, and weight loss, positive fentanyl overdose sp4 All other systems are negative, Exam: 01:17 Constitutional: This is a well developed, well nourished patient who is awake, alert, sp4 and in no acute distress. Head/Face: Normocephalic, atraumatic. Eyes: Pupils equal round and reactive to light, extra-ocular motions intact. Lids and lashes normal. Conjunctiva and sclera are not injected. Cornea within normal limits. Periorbital areas with no swelling, redness, or edema. ENT: Nares patent. No nasal discharge, no septal abnormalities noted. Tympanic membranes are normal and external auditory canals are clear. Oropharynx with no redness, swelling, or masses, exudates, or evidence of obstruction, uvula midline. Mucous membranes moist. Neck: Trachea midline, no thyromegaly or masses palpated, and no cervical lymphadenopathy. Supple, full range of motion without nuchal rigidity, or vertebral point tenderness. Chest/axilla: Normal chest wall appearance and motion. Nontender with no deformity. No lesions are appreciated. Cardiovascular: Regular rate and rhythm with a normal S1 and S2. No gallops, murmurs, or rubs. Normal PMI, no JVD. No pulse deficits. Respiratory: Lungs have equal breath sounds bilaterally, clear to auscultation and percussion. No rales, rhonchi or wheezes noted. No increased work of breathing, no retractions or nasal flaring. Abdomen/GI: Soft, non-tender, with normal bowel sounds. No distension or tympany. No guarding or rebound. No evidence of tenderness throughout. Back: No spinal tenderness. No costovertebral tenderness. There is sacral decubitus ulcer that is covered by the wound VAC. Skin: Warm, dry with normal turgor. Normal color with no rashes, no lesions, and no evidence of cellulitis. MS/ Extremity: Pulses equal, no cyanosis. Neurovascular intact. Full, normal range of motion. Neuro: Awake and alert, GCS 15, oriented to person, place, time, and situation. Cranial nerves II-XII grossly intact. Motor strength 5/5 in all extremities. Sensory grossly intact. Psych: Awake, alert, with orientation to person, place and time. Behavior, mood, and affect are within normal limits 01:19 ECG was reviewed by the Attending Physician. EKG at 2223 -normal sinus rhythm at the sp4 rate of 85 normal EKG Vital Signs: 03/28 22:23 BP 142 / 71; Pulse 91; Resp 15 S; Temp 98.5; Pulse Ox 100% on R/A; Weight 68.04 kg; jw7 Height 5 ft. 3 in. ; Pain 0/10; 22:45 BP 147 / 84; Pulse 83; Resp 21 S; Pulse Ox 100% on R/A; jw7 23:30 BP 141 / 73; Pulse 73; Resp 26 S; Pulse Ox 99% on R/A; jw7 03/29 00:30 BP 123 / 76; Pulse 75; Resp 24 S; Pulse Ox 96% on R/A; [facility] 01: BP 136 / 56; Pulse 74; Resp 16 S; Pulse Ox 99% on R/A; [facility] 03/28 22:23 Body Mass Index 26.57 (68.04 kg, 160.02 cm) [facility] 03/28 22:23 Pain Scale: Adult [facility] MDM: 03/28 22:26 Patient medically screened. [facility] 03/29 01:19 Differential Diagnosis altered mental status, sepsis, flu, Overdose , accidental . Data 4 reviewed: vital signs, nurses notes, EMS record, lab test result(s), EKG. Consideration of Admission/Observation Escalation of care including admission/observation considered. 01:21 ED course: Patient was monitored in the emergency room for 3 hours and is proven to be sp4 stable. Patient is walking about and is eating food on repeat evaluation. Patient is stable for discharge home at this time. Strongly advised to stay away from fentanyl and other intoxicating substances.. 03/28 22:25 Order name: Basic Metabolic Panel; Complete Time: : [facility] 03/28 22:25 Order name: CBC with Diff; Complete Time: [facility] 03/28 22:25 Order name: LFT's; Complete Time: [facility] 03/28 22:25 Order name: Magnesium; Complete Time: [facility] 03/28 22:25 Order name: NT PRO-BNP; Complete Time: [facility] 03/28 22:25 Order name: Troponin HS; Complete Time: : [facility] 03/28 22:25 Order name: EKG; Complete Time: : [facility] 03/28 22:25 Order name: Cardiac monitoring; Complete Time: : [facility] 03/28 22:25 Order name: EKG - Nurse/Tech; Complete Time: : [facility] 03/28 22:25 Order name: IV Saline Lock; Complete Time: [facility] 03/28 22:25 Order name: Labs collected and sent; Complete Time: [facility] 03/28 22:25 Order name: O2 Per Protocol; Complete Time: : [facility] 03/28 22:25 Order name: O2 Sat Monitoring; Complete Time: : 4 EC:19 Rate is 85 beats/min. Rhythm is regular, Normal Sinus Rhythm. QRS [place] is Normal. DC sp4 interval is normal. QRS interval is normal. QT interval is normal. No Q waves. T waves are Normal. No ST changes noted. Clinical impression: Normal ECG. Interpreted by me. Reviewed by me. Administered Medications: 03/28 22:59 Drug: Naloxone IVP 2 mg IVP once Route: IVP; Site: right antecubital; jw7 03/29 01:02 Follow up: Response: No adverse reaction; Marked relief of symptoms jw7 03/28 23:00 Drug: NS 0.9% IV 1000 ml IV at 1 bolus Per protocol; 1000 mL bolus Route: IV; Rate: 1 jw7 bolus; Site: right antecubital; 03/29 01:02 Follow up: Response: No adverse reaction; IV Status: Completed infusion; IV Intake: jw7 1000ml 03/28 23:00 Drug: Ondansetron IVP 4 mg IVP once; over 2 minutes Route: IVP; Site: right antecubital;jw7 03/29 01:02 Follow up: Response: No adverse reaction jw7 Disposition Summary: 03/29/23 01:11 Discharge Ordered Notes: Please avoid use of Fentanyl Location: Home sp4 Problem: new sp4 Symptoms: have improved sp4 Condition: Stable sp4 Diagnosis - Acute unintentional fentanyl overdose sp4 Followup: sp4 - With: Private Physician - When: 7 - 10 days - Reason: Recheck today's complaints Discharge Instructions: - Discharge Summary Sheet sp4 - Opioid Overdose sp4 Forms: - Patient Portal Instructions sp4 Prescriptions: - Narcan 4 mg/actuation Nasal spray, non-aerosol - spray 1 spray INTRANASAL route every 2 to 3 minutes as needed for opioid sp4 overdose; spray 1 dose into ONE nostril; alternate nostrils w each dose until help arrives; 1 unit; Refills: 0, Product Selection Permitted Signatures: Dispatcher [facility] July Corey RN RN jw7 Potepalov, Sergey, MD MD sp4 Corrections: (The following items were deleted from the chart) 03/28 22:30 22:27 Immunization history: Adult Immunizations up to date, veda mccollum
[2023-03-29 04:31] VITALS: TEMP 98.5
[2023-03-29 04:48] VITALS: BP 136/56; O2SAT 99
--- NOTE | 2023-03-29 16:57 | EKG ---
Test Date: 2023-03-28 Test Time: 22:23:49 Warehouse And Receiving Supervisor: JULISSA MEASUREMENT RESULTS: Intervals: Rate: 85 DC: 144 QRSD: 92 QT: 364 QTc: 433 [place]: P: 66 DC: 144 QRS: 27 T: 57 INTERPRETIVE STATEMENTS: Normal sinus rhythm Normal ECG Compared to ECG 03/23/2023 17:16:19 Sinus bradycardia no longer present Electronically Signed On 03-29-23 16:55:16 SEARCH CONSULTANT by Juan Fajardo
== END ==
LOC: ER 22:11
DX: T40.411A Poisoning by fentanyl or fentanyl analogs, accidental (unintentional), initial encounter (principal)
CPT/HCPCS: 36415; 80048; 80076; 83735; 83880; 84484; 85025; 93005; 96361; 96374; 96375; 99291; 99292; J2310; J2405; J7030

== ENCOUNTER → 2023-04-04 | Emergency (ER) | payer SELFPAY ==
--- NOTE | 2023-04-04 04:16 | ER ---
Nurse's Notes [facility] [place] Name: Jesse Mora Age: 22 yrs Sex: Male : 2000 Arrival Date: 04/04/2023 Time: 03:19 Bed 7 Private MD: Diagnosis: Cannabis abuse Presentation: 04/04 03:28 Chief complaint: EMS states: We were called for Suicide attempt. Pt denies SI or jb4 attempting suicide. Grandmother said he has a history of Percocet overdose. Pt reports smoking marijuana and denies any other drug use, HI, or SI. Coronavirus screen: At this time, the client does not indicate any symptoms associated with coronavirus-19. Ebola Screen: No symptoms or risks identified at this time. Initial Sepsis Screen: Does the patient meet any 2 criteria? No. Patient's initial sepsis screen is negative. Does the patient have a suspected source of infection? No. Patient's initial sepsis screen is negative. Risk Assessment: Do you want to hurt yourself or someone else? Patient reports no desire to harm self or others. Onset of symptoms was April 04, 2023. Transition of care: patient was not received from another setting of care. 03:28 Method Of Arrival: EMS: [facility] jb4 03:28 Acuity: BARRON 5 jb4 Triage Assessment: 04:15 General: Appears in no apparent distress. Behavior is calm, cooperative. tm6 Historical: - Allergies: 03:33 PENICILLINS; jb4 03:33 Amoxicillin; jb4 03:33 unknown antibiotic; jb4 - PMHx: 03:33 ADD/ADHD; Asthma; jb4 - Immunization history:: Adult Immunizations up to date. - Social history:: Smoking status: Patient denies any tobacco usage or history of. Patient uses street drugs, marijuana. Screenin:35 [facility] ED Fall Risk Assessment (Adult) History of falling in the last 3 months, tm6 including since admission No falls in past 3 months (0 pts). Abuse screen: Denies threats or abuse. Denies injuries from another. Nutritional screening: No deficits noted. Tuberculosis screening: No symptoms or risk factors identified. Assessment: 03:36 Reassessment: see triage assessment. tm6 03:47 Reassessment: snack provided. Pain: Denies pain. tm6 04:12 Reassessment: Patient appears in no apparent distress at this time. No changes from tm6 previously documented assessment. Vital Signs: 03:28 BP 148 / 78; Pulse 84; Resp 18; Temp 99.1; Pulse Ox 95% on R/A; Weight 70.31 kg; Height jb4 5 ft. 6 in. ; 04:12 BP 131 / 71; Pulse 86; Pulse Ox 95% ; Pain 0/10; tm6 03:28 Body Mass Index 25.02 (70.31 kg, 167.64 cm) jb4 04:12 Pain Scale: Adult tm6 ED Course: 03:22 Patient arrived in ED. kmf 03:24 Nba Casper DO is Attending Physician. ms3 03:32 Triage completed. jb4 03:33 Arm band placed on. jb4 03:35 Patient has correct armband on for positive identification. Bed in low position. Call tm6 light in reach. Side rails up X2. Provided Education on:. 03:35 No provider procedures requiring assistance completed. Patient did not have IV access tm6 during this emergency room visit. Administered Medications: No medications were administered Medication: 03:36 VIS not applicable for this client. tm6 Outcome: 03:25 Discharge ordered by . ms3 04:15 Discharged to home ambulatory, with family, tm6 04:15 Condition: stable 04:15 Discharge instructions given to patient, Instructed on discharge instructions, Demonstrated understanding of instructions, 04:15 Patient left the ED. tm6 Signatures: Ramiro Salas, RN RN jb Nba Casper DO DO ms3 Padma Ge f Michelle Powell RN RN tm6
--- NOTE | 2023-04-04 04:16 | EDPHYS ---
Physician Documentation [facility] Name: Jesse Mora Age: 22 yrs Sex: Male : 2000 Arrival Date: 04/04/2023 Time: 03:19 Bed 7 Private MD: ED Physician Nba Casper HPI: 04/04 03:44 This 22 yrs old Male presents to ER via EMS with complaints of [place] [place] 22-year-old male with past medical history of ADD/ADHD, asthma [place] [facility] [place] [facility] after smoking a bowl of marijuana. Patient denies pain. Patient denies any alleviating or inciting factors. Patient denies nausea, vomiting, chest pain, shortness of breath. Historical: - Allergies: 03:33 PENICILLINS; jb4 03:33 Amoxicillin; jb4 03:33 unknown antibiotic; jb4 - PMHx: 03:33 ADD/ADHD; Asthma; jb4 - Immunization history:: Adult Immunizations up to date. - Social history:: Smoking status: Patient denies any tobacco usage or history of. Patient uses street drugs, marijuana. ROS: 03:44 Constitutional: Negative for fever, and chills. Neck: Negative for injury, pain, and ms3 swelling, Cardiovascular: Negative for chest pain, and palpitations. Respiratory: Negative for shortness of breath, cough, wheezing, and pleuritic chest pain, Abdomen/GI: Negative for abdominal pain, nausea, vomiting, diarrhea, and constipation, MS/Extremity: Negative for injury and deformity, Skin: Negative for injury, rash, and discoloration, 03:44 All other systems are negative, Exam: 03:44 Constitutional: This is a well developed, well nourished patient who is awake, alert, ms3 and in no acute distress. Head/Face: Normocephalic, atraumatic. Neck: Trachea midline, no cervical lymphadenopathy. Supple, full range of motion without nuchal rigidity, or vertebral point tenderness. No Meningismus. Chest/axilla: Normal chest wall appearance and motion. Nontender with no deformity. Cardiovascular: Regular rate and rhythm with a normal S1 and S2. No gallops, murmurs, or rubs. Normal PMI, no JVD. No pulse deficits. Respiratory: Lungs have equal breath sounds bilaterally, clear to auscultation and percussion. No rales, rhonchi or wheezes noted. No increased work of breathing, no retractions or nasal flaring. Abdomen/GI: Soft, non-tender, with normal bowel sounds. No distension or tympany. No guarding or rebound. No evidence of tenderness throughout. Skin: Warm, dry with normal turgor. Normal color with no rashes, no lesions, and no evidence of cellulitis. MS/ Extremity: Pulses equal, no cyanosis. Neurovascular intact. Full, normal range of motion. Vital Signs: 03:28 BP 148 / 78; Pulse 84; Resp 18; Temp 99.1; Pulse Ox 95% on R/A; Weight 70.31 kg; Height jb4 5 ft. 6 in. ; 04:12 BP 131 / 71; Pulse 86; Pulse Ox 95% ; Pain 0/10; tm6 03:28 Body Mass Index 25.02 (70.31 kg, 167.64 cm) jb4 04:12 Pain Scale: Adult tm6 MDM: 03:24 Patient medically screened. ms3 03:44 Differential Diagnosis Marijuana abuse versus methamphetamine abuse versus alcohol ms3 abuse. Data reviewed: vital signs, nurses notes, and as a result, I will discharge patient. Historians other than the Patient: EMS: [facility]. Counseling: I had a detailed discussion with the patient and/or guardian regarding the historical points, exam findings, and any diagnostic results supporting the discharge/admit diagnosis, the need for outpatient follow up, to return to the emergency department if symptoms worsen or persist or if there are any questions or concerns that arise at home, smoking cessation. ED course: Discussed physical exam findings with patient. Patient wishes to be discharged at this time. Patient is alert and oriented x 4, no apparent distress, nontoxic-appearing, ambulatory in the emergency department, speaking full sentences. Patient to follow-up with primary care physician 2 to 3 days. All questions were answered. Return precautions discussed include worsening symptoms, or any other concerns. Discussed cessation of marijuana with patient.. Administered Medications: No medications were administered Disposition: 23:36 Chart complete. ms3 Disposition Summary: 04/04/23 03:25 Discharge Ordered Notes: Location: Home ms3 Condition: Stable ms3 Diagnosis - Cannabis abuse ms3 Followup: ms3 - With: Private Physician - When: 2 - 3 days - Reason: Discharge Instructions: - Discharge Summary Sheet ms3 - Cannabis Use Disorder ms3 Forms: - Medication Reconciliation Form ms3 - Thank You Letter ms3 - Antibiotic Education ms3 - Prescription Opioid Use ms3 - Patient Portal Instructions ms3 - Leadership Thank You Letter ms3 Signatures: Ramiro Salas RN RN jb4 Nba Casper DO DO ms3 Michelle Powell RN RN tm6
[2023-04-04 04:56] VITALS: BP 131/71; TEMP 99.1; O2SAT 95
== END ==
LOC: ER 03:19
DX: F12.10 Cannabis abuse, uncomplicated (principal)
CPT/HCPCS: 99283

== ENCOUNTER → 2023-04-20 | Emergency (ER) | payer SELFPAY ==
[2023-04-20 01:54] LABS: Absolute Lymphocytes (CBC) 1.4 K/uL (0.7-4.9); Hematocrit 30.9 % (39.6-49.0); Lymphocytes % 18.8 % (15.3-44.8); MCV 88.6 fL (80-100); MPV 8.2 fL (7.6-11.3); Platelets 250 thou/uL (152-406); RBC Red Blood Cell Count 3.48 M/uL (4.33-5.43)
[2023-04-20 02:05] LABS: Albumin 3.3 g/dL (3.4-5.0); Bilirubin Direct 0.1 mg/dL (0-0.2); Bilirubin Indirect, Calculated 0.3 mg/dL (0.2-0.8); Bilirubin Total 0.4 mg/dL (0.2-1.0); Potassium 3.9 mEq/L (3.5-5.1); Protein, Total 6.4 g/dL (6.4-8.2)
--- NOTE | 2023-04-20 05:49 | EDPHYS ---
Physician Documentation [facility] Name: Jesse Mora Age: 22 yrs Sex: Male : 2000 Arrival Date: 04/20/2023 Time: 00:53 Bed 6 Private MD: ED Physician Marcus Quinones HPI: 04/20 01:01 This 22 yrs old Male presents to ER via Unassigned with complaints of Overdose sp4 on Fentanyl and agitation . 02:24 Patient presents with EMS for acute drug ingestion. Patient was acting erratically at sp4 home and was argumentative with the family and family has called EMS. Patient reports that he has ingested fentanyl tablets that he obtained on the street but not sure how many. Narcan was not administered at the scene. Patient is familiar to me from prior to presentation for fentanyl overdose. . Historical: - Allergies: 01:29 Amoxicillin; jb4 01:29 PENICILLINS; jb4 01:29 unknown antibiotic; jb4 - Home Meds: :29 Adderall XR 20 mg Oral cp24 1 cap once daily [Active]; jb4 - PMHx: 01:29 ADD/ADHD; Asthma; jb4 - Immunization history:: Adult Immunizations up to date. - Social history:: Smoking status: Patient denies any tobacco usage or history of. Patient uses street drugs, marijuana, Percocets. - Family history:: not pertinent. ROS: 02:24 Constitutional: Negative for fever, chills, and weight loss, positive for erratic sp4 behavior and positive drug ingestion 02:24 All other systems are negative, Exam: 02:24 Constitutional: This is a well developed, well nourished patient who is awake, alert, sp4 Positive mild to moderate agitation on arrival Head/Face: Normocephalic, atraumatic. Eyes: Pupils equal round and reactive to light, extra-ocular motions intact. Lids and lashes normal. Conjunctiva and sclera are not injected. Cornea within normal limits. Periorbital areas with no swelling, redness, or edema. ENT: Nares patent. No nasal discharge, no septal abnormalities noted. Tympanic membranes are normal and external auditory canals are clear. Oropharynx with no redness, swelling, or masses, exudates, or evidence of obstruction, uvula midline. Mucous membranes moist. Neck: Trachea midline, no thyromegaly or masses palpated, and no cervical lymphadenopathy. Supple, full range of motion without nuchal rigidity, or vertebral point tenderness. Chest/axilla: Normal chest wall appearance and motion. Nontender with no deformity. No lesions are appreciated. Cardiovascular: Regular rate and rhythm with a normal S1 and S2. No gallops, murmurs, or rubs. Normal PMI, no JVD. No pulse deficits. Respiratory: Lungs have equal breath sounds bilaterally, clear to auscultation and percussion. No rales, rhonchi or wheezes noted. No increased work of breathing, no retractions or nasal flaring. Abdomen/GI: Soft, non-tender, with normal bowel sounds. No distension or tympany. No guarding or rebound. No evidence of tenderness throughout. Back: No spinal tenderness. No costovertebral tenderness. Skin: Warm, dry with normal turgor. Normal color with no rashes, no lesions, and no evidence of cellulitis. MS/ Extremity: Pulses equal, no cyanosis. Neurovascular intact. Full, normal range of motion. Neuro: Awake and alert, GCS 15, oriented to person, place, time, and situation. Cranial nerves II-XII grossly intact. Motor strength 5/5 in all extremities. Sensory grossly intact. Psych: Awake, alert, with orientation to person, place and time. Behavior, mood, and affect are within normal limits Vital Signs: 01:27 BP 149 / 88; Pulse 82; Resp 16; Temp 98.2(O); Pulse Ox 100% on R/A; Weight 65.77 kg; jb4 Height 5 ft. 7 in. ; 02:15 BP 123 / 69; Pulse 50; Resp 17 S; Pulse Ox 97% on R/A; jw7 03:00 BP 114 / 68; Pulse 50; Resp 16 S; Pulse Ox 97% on R/A; jw7 04:00 BP 115 / 65; Pulse 52; Resp 16 S; Pulse Ox 98% on R/A; jw7 05:30 BP 118 / 70; Pulse 65; Resp 16 S; Pulse Ox 98% on R/A; jw7 01:27 Body Mass Index 22.71 (65.77 kg, 170.18 cm) jb4 MDM: 01:09 Patient medically screened. sp4 05:46 Differential diagnosis: Overdose, polysubstance abuse, agitation. Data reviewed: vital sp4 signs, nurses notes, EMS record, old medical records, lab test result(s). Consideration of Admission/Observation Escalation of care including admission/observation considered. ED course: Patient is feeling better, woke up after some rest in ER. Patient is stable for discharge home. Advised to abstain from recreational substances. . 04/20 01:02 Order name: Basic Metabolic Panel; Complete Time: :32 sp4 04/20 01:02 Order name: CBC with Diff; Complete Time: : sp4 04/20 01:02 Order name: LFT's; Complete Time: : sp4 04/20 01:02 Order name: Troponin HS; Complete Time: sp4 04/20 01:02 Order name: IV Saline Lock; Complete Time: sp4 04/20 01:02 Order name: Labs collected and sent; Complete Time: sp4 04/20 01:02 Order name: O2 Per Protocol; Complete Time: sp4 04/20 01:02 Order name: O2 Sat Monitoring; Complete Time: sp4 Administered Medications: 01:30 Drug: NS 0.9% IV 1000 ml IV at 1 bolus Per protocol; 1000 mL bolus Route: IV; Rate: 1 rv bolus; Site: left antecubital; 05:59 Follow up: Response: No adverse reaction; IV Status: Completed infusion; IV Intake: jw7 1000ml 05:59 Not Given (Physician Discretion): [id number] mg IM once jw7 05:59 Not Given (Patient Refused): ondansetron 4 mg IVP once; over 2 minutes jw7 Disposition Summary: 04/20/23 05:49 Discharge Ordered Notes: We recommend you abstain from substance use. Location: Home sp4 Problem: new sp4 Symptoms: have improved sp4 Condition: Stable sp4 Diagnosis - Adverse effect of unspecified drugs, medicaments and biological substances sp4 - Intoxication , acute sp4 Followup: sp4 - With: Private Physician - When: As needed - Reason: Discharge Instructions: - Discharge Summary Sheet sp4 - Substance Use Disorder sp4 Forms: - Patient Portal Instructions sp4 Signatures: Dispatcher [employer] EDMS Ramiro Salas RN RN jb4 Eliezer Edmondson RN RN Marcus Gray MD MD sp4 July Neff RN jw7
--- NOTE | 2023-04-20 05:49 | ER ---
Nurse's Notes [facility] [place] Name: Jesse Mora Age: 22 yrs Sex: Male : 2000 Arrival Date: 04/20/2023 Time: 00:53 Bed 6 Private MD: Diagnosis: Adverse effect of unspecified drugs, medicaments and biological substances;Intoxication , acute Presentation: 04/20 01:27 Chief complaint: EMS states: Pt took 2 Percocet and smoked marijuana. Grandmother jbSummer reports he was unrstonsive, pt was responsive and A\T\Ox4 upon EMS arrival. Coronavirus screen: At this time, the client does not indicate any symptoms associated with coronavirus-19. Ebola Screen: No symptoms or risks identified at this time. Initial Sepsis Screen: Does the patient meet any 2 criteria? No. Patient's initial sepsis screen is negative. Does the patient have a suspected source of infection? No. Patient's initial sepsis screen is negative. Risk Assessment: Do you want to hurt yourself or someone else? Patient reports no desire to harm self or others. Onset of symptoms was April 20, 2023. Transition of care: patient was not received from another setting of care. 01:27 Method Of Arrival: EMS: [facility] jb4 01:27 Acuity: BARRON 3 jb4 Historical: - Allergies: 01:29 Amoxicillin; 4 01:29 PENICILLINS; 4 01:29 unknown antibiotic; jb4 - Home Meds: 01:29 Adderall XR 20 mg Oral cp24 1 cap once daily [Active]; jb4 - PMHx: 01:29 ADD/ADHD; Asthma; jb4 - Immunization history:: Adult Immunizations up to date. - Social history:: Smoking status: Patient denies any tobacco usage or history of. Patient uses street drugs, marijuana, Percocets. - Family history:: not pertinent. Screenin:34 [facility] ED Fall Risk Assessment (Adult) History of falling in the last 3 months, rv including since admission No falls in past 3 months (0 pts) Confusion or Disorientation Yes (5 pts) Intoxicated or Sedated Yes (3 pts) Score/Fall Risk Level 3 or more points = High Risk Oriented to surroundings, Maintained a safe environment, Educated pt \T\ family on fall prevention, incl call for assistance when getting out of bed, Assessed \T\ reinforced patient's understanding of fall precautions. Abuse screen: Denies threats or abuse. Denies injuries from another. Nutritional screening: No deficits noted. Tuberculosis screening: No symptoms or risk factors identified. Assessment: 01:30 General: Appears in no apparent distress. comfortable, Behavior is cooperative, jw7 restless. Pain: Denies pain. Neuro: Downs Agitation-Sedation Scale (RASS): +1 Restless Level of Consciousness is awake, alert, obeys commands, Oriented to person, place, time. Cardiovascular: Heart tones S1 S2 present Capillary refill < 3 seconds Clubbing of nail beds is absent JVD is absent Patient's skin is warm and dry. Respiratory: Airway is patent Trachea midline Respiratory effort is even, unlabored, Respiratory pattern is regular, symmetrical. GI: Abdomen is flat, non-distended, Bowel sounds present X 4 quads. : No deficits noted. No signs and/or symptoms were reported regarding the genitourinary system. EENT: No deficits noted. No signs and/or symptoms were reported regarding the EENT system. Derm: Skin is intact, is healthy with good turgor, Skin is dry, Skin is normal, Skin temperature is warm. Musculoskeletal: Circulation, motion, and sensation intact. Range of motion: intact in all extremities. 02:30 Reassessment: Patient appears in no apparent distress at this time. Patient and/or jw7 family updated on plan of care and expected duration. Pain level reassessed. pt resting with eyes closed, respirations are even and unlabored, RR 16, O2 97% RA. 03:30 Reassessment: Patient appears in no apparent distress at this time. No changes from jw7 previously documented assessment. Patient and/or family updated on plan of care and expected duration. Pain level reassessed. Patient is alert, oriented x 3, equal unlabored respirations, skin warm/dry/pink. 04:30 Reassessment: Patient appears in no apparent distress at this time. No changes from jw7 previously documented assessment. Patient and/or family updated on plan of care and expected duration. Pain level reassessed. Patient is alert, oriented x 3, equal unlabored respirations, skin warm/dry/pink. 05:30 Reassessment: Patient appears in no apparent distress at this time. Patient and/or jw7 family updated on plan of care and expected duration. Pain level reassessed. Patient is alert, oriented x 3, equal unlabored respirations, skin warm/dry/pink. Patient states feeling better. Patient states symptoms have improved. Vital Signs: 01:27 BP 149 / 88; Pulse 82; Resp 16; Temp 98.2(O); Pulse Ox 100% on R/A; Weight 65.77 kg; jb4 Height 5 ft. 7 in. ; 02:15 BP 123 / 69; Pulse 50; Resp 17 S; Pulse Ox 97% on R/A; jw7 03:00 BP 114 / 68; Pulse 50; Resp 16 S; Pulse Ox 97% on R/A; jw7 04:00 BP 115 / 65; Pulse 52; Resp 16 S; Pulse Ox 98% on R/A; jw7 05:30 BP 118 / 70; Pulse 65; Resp 16 S; Pulse Ox 98% on R/A; jw7 01:27 Body Mass Index 22.71 (65.77 kg, 170.18 cm) jb4 ED Course: 00:58 Patient arrived in ED. kmf 01:01 Marcus Quinones MD is Attending Physician. sp4 01:29 Triage completed. jb4 01:29 Arm band placed on right wrist. jb4 01:30 Patient has correct armband on for positive identification. Bed in low position. Call jw7 light in reach. Side rails up X2. 01:33 Eliezer Edmondson, SASHA is Primary Nurse. rv 01:34 No provider procedures requiring assistance completed. Maintain EMS IV. Dressing rv intact. Good blood return noted. Site clean \T\ dry. Gauge \T\ site: 18 left forearm. 06:01 Provided Education on: discharge instructions. jw7 06:01 IV discontinued, intact, bleeding controlled, No redness/swelling at site. Pressure jw7 dressing applied. Administered Medications: 01:30 Drug: NS 0.9% IV 1000 ml IV at 1 bolus Per protocol; 1000 mL bolus Route: IV; Rate: 1 rv bolus; Site: left antecubital; 05:59 Follow up: Response: No adverse reaction; IV Status: Completed infusion; IV Intake: jw7 1000ml 05:59 Not Given (Physician Discretion): [id number] mg IM once jw7 05:59 Not Given (Patient Refused): ondansetron 4 mg IVP once; over 2 minutes jw7 Medication: 01:34 VIS not applicable for this client. rv Intake: 05:59 IV: 1000ml; Total: 1000ml. jw7 Outcome: 05:49 Discharge ordered by . inocencio 06:01 Discharged to home ambulatory, jw7 06:01 Condition: stable 06:01 Discharge instructions given to patient, Instructed on discharge instructions, follow up and referral plans. Demonstrated understanding of instructions, follow-up care, 06:01 Patient left the ED. jw7 Signatures: Ramiro Salas RN RN jbEliezer Walker RN RN rv July Neff RN RN jw7 Marcus Quinones MD MD sp4 Forrester, Kelsey Maroul [facility] Corrections: (The following items were deleted from the chart) 02:19 01:35 General: Appears in no apparent distress. comfortable, Behavior is calm, jw7 cooperative, rv 02:19 01:35 Pain: Complains of pain in right eye rv jw7 01:00 General: Appears in no apparent distress. comfortable, Behavior is cooperative, jw7 restless, jw7 01:00 Pain: Denies pain. jw7 jw7 :00 Neuro: Downs Agitation-Sedation Scale (RASS): +1 Restless Level of jw7 Consciousness is awake, alert, obeys commands, Oriented to person, place, time, jw7 :00 Cardiovascular: Heart tones S1 S2 present Capillary refill < 3 seconds Clubbing jw7 of nail beds is absent JVD is absent Patient's skin is warm and dry. jw7 :00 Respiratory: Airway is patent Trachea midline Respiratory effort is even, jw7 unlabored, Respiratory pattern is regular, symmetrical, jw7 :00 GI: Abdomen is flat, non-distended, Bowel sounds present X 4 quads. jw7 jw7 :00 : No deficits noted. No signs and/or symptoms were reported regarding the jw7 genitourinary system. jw7 : EENT: No deficits noted. No signs and/or symptoms were reported regarding the jw7 EENT system. jw7 :00 Derm: Skin is intact, is healthy with good turgor, Skin is dry, Skin is normal, jw7 Skin temperature is warm jw7 02:23 01:00 Musculoskeletal: Circulation, motion, and sensation intact. Range of motion: jw7 intact in all extremities, jw7
[2023-04-21 10:21] VITALS: BP 118/70; TEMP 98.2; O2SAT 98
== END ==
LOC: ER 00:53
DX: F11.929 Opioid use, unspecified with intoxication, unspecified (principal); T40.415A Adverse effect of fentanyl or fentanyl analogs, initial encounter
CPT/HCPCS: 36415; 80048; 80076; 84484; 85025